=== PATIENT | female | born 1965 | race Caucasian/White ===

== ENCOUNTER → 2016-09-03 | Day surgery (SDC) | payer MEDICARE, MEDICAID ==
[~2016-09-03] VITALS: Ht 172.7 cm; Wt 136.1 kg
[~2016-09-03] MED LIST: ALBUTEROL0.09 MG/A2; ALBUTEROL2.5 MG/0.5 NEB; AUGMENTIN 875 M1 TAB PO; AUGMENTIN PO; AVELOX400 MG IJ; BUSPAR15 MG PO; BUSPAR5 MG; CRANBERRY PO; CYMBALTA20 MG; CYMBALTA60 MG PO; DICLOFENAC SOD75 MG PO; DILT-XR120 MG PO; FISH OIL PO; FLEXERIL5 MG PO; GARLIC1 EACH PO; GAS RELIEF80 MG PO; GEODON20 MG; GEODON80 MG PO; GUAIFENESIN PO; HYDROCHLOROTH12.5 MG; KEFLEX500 MG PO; LIPITOR10 MG; METICORTEN1 MG; MOTRIN800 MG PO; OMEPRAZOLE MAGN20 MG PO; PLAQUENIL200 MG PO; PREDNISONE10 MG PO; PREDNISONE5 MG PO; PROAIR HFA8.5 GM IH; QUINAPRIL20 MG PO; SPIRIVA18 MCG PO; STEROIDS; SYMBICORT1 AE1; SYMBICORT1 AE1 INH; Senokot-S 50 MG1 TAB PO; TECFIDERA240 M2 PO; TRIAMTERENE AND1 TA1 PO; TRIMOX; TYLENOL325 M1 PO; VICODIN 5/500 505 MG PO; VITAMIN D32000 UNIT PO; VITAMIN E400 UNI2 PO; VITAMINS FOR HA1 CAP PO; XALATAN 0.005%2.5 ML; XALATAN 0.005%2.5 ML OU; XANAX0.25 MG; XANAX0.5 MG PO; [UNRECOGNIZED DRUG - OTHER] SC; [UNRECOGNIZED DRUG - REMARK]
--- NOTE | ~2016-09-03 | PROC NOTE ---
[place], [place] PROCEDURE NOTE NAME: MARIANO BRAMBILA UNIT #: [id number] ROOM: DOCTOR: NATALIE GUNTER MD BIRTHDATE: [birth year] DATE: 09/03/16 INDICATION: This 51-year-old patient has presented for colonic screening. ALLERGIES: To no known medication. PAST MEDICAL HISTORY: Systemic lupus erythematosus, MS, COPD, hypertension. FAMILY HISTORY: Noncontributory. SOCIAL HISTORY: Nonsmoker, nonalcohol consumer. PAST SURGICAL HISTORY: Cholecystectomy, hysterectomy. PROCEDURE: Today's procedure as part of investigation is colonoscopy plus snare polypectomy from sigmoid colon. PREMEDICATION: Versed and Diprivan. SCOPE: Olympus forward-viewing colonoscope 10L video. REPORT: After putting the patient in the left lateral position and after application of lubricant to the scope, the scope was introduced thereafter under direct visualization and advanced through the length of the colon without difficulty. The only difficulty present was some semi-liquid obtained, however, we were able to identify polypoid lesion in sigmoid colon was removed by snare polypectomy. Patient extubated, tolerated the procedure well. IMPRESSION: Sigmoid colonic polyp, status post polypectomy with snare. PLAN: High fiber diet, activity ad zay, follow up routinely with you in the office and prn visit with us in GI clinic. NATALIE VALDERRAMA MD CM:PROCNOTE:PROCEDURE NOTE [address] ESTRELLA GUNTER MD
[2016-09-03 07:00] VITALS: BP 144/77
[2016-09-03 07:56] VITALS: BP 141/79
[2016-09-03 08:11] VITALS: BP 141/78
[2016-09-03 08:26] VITALS: BP 145/70
== END | disposition home or self-care (01) ==
LOC: SDC 09-01 14:00
DX: Z12.11 Encounter for screening for malignant neoplasm of colon (principal); D12.5 Benign neoplasm of sigmoid colon; J44.9 Chronic obstructive pulmonary disease, unspecified; G35 Multiple sclerosis; I10 Essential (primary) hypertension; F32.9 Major depressive disorder, single episode, unspecified; F41.9 Anxiety disorder, unspecified; M32.9 Systemic lupus erythematosus, unspecified; J45.909 Unspecified asthma, uncomplicated; K21.9 Gastro-esophageal reflux disease without esophagitis; Z90.49 Acquired absence of other specified parts of digestive tract; Z90.710 Acquired absence of both cervix and uterus; Z98.890 Other specified postprocedural states; Z83.3 Family history of diabetes mellitus

== ENCOUNTER → 2017-09-30 | Outpatient (CLI) | payer MEDICARE, MEDICAID | END | disposition home or self-care (01) | LOC: RAD 09:32 | DX: M17.11 Unilateral primary osteoarthritis, right knee (principal); M71.21 Synovial cyst of popliteal space [Baker], right knee ==

== ENCOUNTER 2017-11-30 11:53 | Emergency (ER) | payer MEDICARE, MEDICAID ==
[~2017-11-30] VITALS: Ht 172.7 cm; Wt 136.1 kg
--- NOTE | ~2017-11-30 | EKG ---
[place], [place] ELECTROCARDIOGRAM REPORT NAME: MARIANO BRAMBILA UNIT #: [id number] ROOM: DOCTOR: EPIPHANY DRAFT REPORT BIRTHDATE: [birth year] [facility] Test Date: 2017-11-30 Test Time: 13:14:09 Pat Name: MARIANO BRAMBILA Department: Room: Gender: F [employer]ner: REMEDIOS : 1965 Requested By: NAKIA HERNANDEZ Order Number: [id number] Reading MD: Sandy Nunez MD Measurements Intervals Rufus Rate: 78 P: 65 MT: 131 QRS: 61 QRSD: 88 T: 64 QT: 374 QTc: 426 Interpretive Statements Sinus rhythm Low voltage, extremity leads Electronically Signed On 11-30-2017 14:12:09 PDT by Sandy Nunez MD CM:EKGRPT:ELECTROCARDIOGRAM REPORT 1314 1412 NAKIA TIWARI DRAFT REPORT NAKIA HERNANDEZ DO
[2017-11-30 13:10] LABS: BASO % 0.3 % (0.0-1.0); EOS # 0.2 10*3/uL (0.0-0.4); EOS % 1.3 % (1.0-4.0); HEMATOCRIT 40.5 % (37.0-47.0); HEMOGLOBIN 13.3 g/dl (12.0-16.0); LYMPH # 1.9 10*3/uL (1.3-4.4); LYMPH % 14.6 % (27.0-41.0); MEAN CELL VOLUME 94.4 fl (81.0-99.0); MEAN CORPUSCULAR HGB CONC 32.8 g/dl (33.0-37.0); MEAN PLATELET VOLUME 9.4 fl (9.6-12.3); MONO # 0.9 10*3/uL (0.1-1.0); MONO % 6.6 % (3.0-9.0); NEUT # 10.1 10*3/uL (2.3-7.9); NEUT % 76.7 % (47.0-73.0); PLATELET COUNT AUTOMATED 241 10*3/uL (130-400); RED BLOOD COUNT 4.29 10*6/uL (4.10-5.10); RED CELL DISTRI WIDTH 13.6 % (0-14.5); WHITE BLOOD COUNT 13.1 10*3/uL (4.8-10.8)
[2017-11-30 13:26] LABS: ALBUMIN 3.2 gm/dl (3.1-4.5); ALKALINE PHOSPHATASE 82 U/L (45-117); BUN 13 mg/dl (7-24); CHLORIDE 103 mmol/L (98-107); CREATININE 0.95 mg/dL (0.55-1.02); POTASSIUM 4.1 mmol/L (3.5-5.1); SGOT/AST 14 IU/L (3-35); SGPT/ALT 37 U/L (12-78); SODIUM 138 mmol/L (136-145); TOTAL PROTEIN 7.5 gm/dL (6.4-8.2)
[2017-11-30 13:27] LABS: TROPONIN I < 0.015 ng/ml (<0.045)
[2017-11-30] MEDS ORDERED: ZITHROMAX250 MG PO (13:39)
[2017-11-30] MEDS ORDERED: DELTASONE20 M1 PO (13:39)
== END 2017-11-30 13:59 | disposition home or self-care (01) ==
LOC: ED 11:53
PROVIDERS: Emergency Medicine
DX: J40 Bronchitis, not specified as acute or chronic (principal); J44.9 Chronic obstructive pulmonary disease, unspecified; I10 Essential (primary) hypertension; Z90.49 Acquired absence of other specified parts of digestive tract; Z90.710 Acquired absence of both cervix and uterus; Z79.899 Other long term (current) drug therapy

== ENCOUNTER → 2018-12-31 | Outpatient (CLI) | payer MEDICARE, MEDICAID ==
[~2018-12-31] MED LIST changes: +DELTASONE20 M1 PO; +MEDROL DOSEPAK4 MG PO; +ZITHROMAX250 MG PO
== END | disposition home or self-care (01) ==
LOC: CT 08:37
DX: J43.9 Emphysema, unspecified (principal); R91.1 Solitary pulmonary nodule; K44.9 Diaphragmatic hernia without obstruction or gangrene; R06.02 Shortness of breath; R09.89 Other specified symptoms and signs involving the circulatory and respiratory systems; R00.0 Tachycardia, unspecified; G35 Multiple sclerosis

== ENCOUNTER → 2019-01-17 | Outpatient (CLI) | payer MEDICARE, MEDICAID | END | disposition home or self-care (01) | LOC: CARD 01-10 09:30 | DX: R01.1 Cardiac murmur, unspecified (principal); R60.9 Edema, unspecified ==

== ENCOUNTER 2019-01-30 13:11 | Emergency (ER) | payer MEDICARE, MEDICAID ==
[~2019-01-30] VITALS: Ht 172.7 cm; Wt 122.5 kg
[~2019-01-30 13:11] MED LIST changes: -MEDROL DOSEPAK4 MG PO
[2019-01-30 13:49] LABS: BASO # 0.1 10*3/uL (0.0-0.1); BASO % 0.5 % (0.0-1.0); EOS # 0.4 10*3/uL (0.0-0.4); EOS % 3.8 % (1.0-4.0); HEMATOCRIT 44.2 % (37.0-47.0); HEMOGLOBIN 14.3 g/dl (12.0-16.0); LYMPH # 1.9 10*3/uL (1.3-4.4); LYMPH % 20.5 % (27.0-41.0); MEAN CELL VOLUME 99.1 fl (81.0-99.0); MEAN CORPUSCULAR HGB 32.1 pg (27.0-31.0); MEAN CORPUSCULAR HGB CONC 32.4 g/dl (33.0-37.0); MEAN PLATELET VOLUME 10.5 fl (9.6-12.3); MONO # 0.7 10*3/uL (0.1-1.0); MONO % 7.2 % (3.0-9.0); NEUT # 6.3 10*3/uL (2.3-7.9); NEUT % 67.7 % (47.0-73.0); PLATELET COUNT AUTOMATED 270 10*3/uL (130-400); RED BLOOD COUNT 4.46 10*6/uL (4.10-5.10); RED CELL DISTRI WIDTH 12.9 % (0-14.5); WHITE BLOOD COUNT 9.3 10*3/uL (4.8-10.8)
[2019-01-30 13:59] LABS: BUN 9 mg/dl (7-24); CHLORIDE 106 mmol/L (98-107); CREATININE 0.81 mg/dL (0.55-1.02); POTASSIUM 3.9 mmol/L (3.5-5.1); SODIUM 141 mmol/L (136-145)
[2019-01-30 14:00] LABS: ACT PARTIAL THROMBO TIME 27.4 SECONDS (20.0-32.1)
[2019-01-30] MEDS ORDERED: MEDROL DOSEPAK4 MG PO ×2 (15:00→15:40)
[2019-01-30] MEDS ORDERED: TYLENOL325 M1 PO ×3 (15:00→15:52)
== END 2019-01-30 15:58 | disposition home or self-care (01) ==
LOC: ED 13:11
PROVIDERS: Emergency Medicine
DX: M54.16 Radiculopathy, lumbar region (principal); J44.9 Chronic obstructive pulmonary disease, unspecified; I10 Essential (primary) hypertension; G35 Multiple sclerosis; K21.9 Gastro-esophageal reflux disease without esophagitis; Z79.2 Long term (current) use of antibiotics; Z79.899 Other long term (current) drug therapy

== ENCOUNTER → 2019-04-28 | Outpatient (CLI) | payer MEDICARE, MEDICAID ==
[~2019-04-28] MED LIST changes: +MEDROL DOSEPAK4 MG PO
[2019-04-28 09:42] LABS: BASO # 0.1 10*3/uL (0.0-0.1); BASO % 0.6 % (0.0-1.0); EOS # 0.2 10*3/uL (0.0-0.4); EOS % 2.6 % (1.0-4.0); HEMATOCRIT 45.2 % (37.0-47.0); HEMOGLOBIN 14.2 g/dl (12.0-16.0); LYMPH # 2.1 10*3/uL (1.3-4.4); LYMPH % 24.1 % (27.0-41.0); MEAN CORPUSCULAR HGB 30.5 pg (27.0-31.0); MEAN CORPUSCULAR HGB CONC 31.4 g/dl (33.0-37.0); MEAN PLATELET VOLUME 9.9 fl (9.6-12.3); MONO # 0.8 10*3/uL (0.1-1.0); MONO % 9.2 % (3.0-9.0); NEUT # 5.6 10*3/uL (2.3-7.9); NEUT % 63.2 % (47.0-73.0); PLATELET COUNT AUTOMATED 292 10*3/uL (130-400); RED BLOOD COUNT 4.66 10*6/uL (4.10-5.10); RED CELL DISTRI WIDTH 13.2 % (0-14.5); WHITE BLOOD COUNT 8.8 10*3/uL (4.8-10.8)
[2019-04-28 10:15] LABS: ALKALINE PHOSPHATASE 84 U/L (45-117); BUN 11 mg/dl (7-24); CHLORIDE 107 mmol/L (98-107); CHOLESTEROL 188 mg/dL (<200); CREATININE 0.71 mg/dL (0.55-1.02); SGOT/AST 13 IU/L (3-35); SGPT/ALT 23 U/L (12-78); SODIUM 141 mmol/L (136-145); TOTAL PROTEIN 7.1 gm/dL (6.4-8.2); TRIGLYCERIDES 257 mg/dl (<150); VLDL CHOLESTEROL 51 mg/dL (6-40)
[2019-04-28 10:23] LABS: HDL CHOLESTEROL 39 mg/dl (40-60); LDL CHOLESTEROL 98 mg/dL (9-159)
[2019-04-28 10:55] LABS: VITAMIN D, 25-HYDROXY 44.1 ng/mL (30-100)
== END | disposition home or self-care (01) ==
LOC: LAB 08:46
PROVIDERS: Nurse Practitioner Primary Care
DX: I10 Essential (primary) hypertension (principal); E55.9 Vitamin D deficiency, unspecified; R53.83 Other fatigue; Z23 Encounter for immunization; Z79.899 Other long term (current) drug therapy

== ENCOUNTER → 2019-04-29 | Outpatient (CLI) | payer MEDICARE, MEDICAID | END | disposition home or self-care (01) | LOC: LAB 10:54 | PROVIDERS: Nurse Practitioner Primary Care | DX: R80.9 Proteinuria, unspecified (principal) ==

== ENCOUNTER → 2019-07-18 | Outpatient (CLI) | payer MEDICARE, MEDICAID ==
[~2019-07-18] MED LIST changes: +BREO ELLIPTA 11 EACH INH; +COPAXONE40 MG/1 ML SQ; +ESZOPICLONE1 MG PO; +SINGULAIR10 M1 PO
== END | disposition home or self-care (01) ==
LOC: CT 13:00
DX: R91.8 Other nonspecific abnormal finding of lung field (principal); I25.10 Atherosclerotic heart disease of native coronary artery without angina pectoris; Z90.49 Acquired absence of other specified parts of digestive tract

== ENCOUNTER → 2019-07-22 | Outpatient (CLI) | payer MEDICARE, MEDICAID | END | disposition home or self-care (01) | LOC: LAB 15:12 | DX: Z01.818 Encounter for other preprocedural examination (principal); Z11.59 Encounter for screening for other viral diseases ==

== ENCOUNTER → 2019-07-26 | Day surgery (SDC) | payer MEDICARE, MEDICAID ==
[~2019-07-26] VITALS: Ht 172.7 cm; Wt 117.9 kg
[2019-07-26 07:47] VITALS: BP 147/74
[2019-07-26 10:00] VITALS: BP 151/97
[2019-07-26 10:15] VITALS: BP 137/81
[2019-07-27 10:08] LABS: ACID FAST SPEC PROCESSING Concentration (.)
== END | disposition home or self-care (01) ==
LOC: SDC 07-25 13:15
PROVIDERS: Internal Medicine Critical Care Medicine
PROC: 0BJ08ZZ Inspection of Tracheobronchial Tree, Via Natural or Artificial Opening Endoscopic (ICD-10-PCS; principal; 2019-07-26)
DX: J43.2 Centrilobular emphysema (principal); G47.33 Obstructive sleep apnea (adult) (pediatric); I10 Essential (primary) hypertension; E11.9 Type 2 diabetes mellitus without complications; K21.9 Gastro-esophageal reflux disease without esophagitis; F41.9 Anxiety disorder, unspecified; F32.9 Major depressive disorder, single episode, unspecified; Z87.891 Personal history of nicotine dependence; Z79.899 Other long term (current) drug therapy; Z83.3 Family history of diabetes mellitus

== ENCOUNTER → 2020-02-21 | Outpatient (CLI) | payer MEDICARE, MEDICAID | END | disposition home or self-care (01) | LOC: COVID19 09:44 | PROVIDERS: ATTEND Nurse Practitioner Primary Care | DX: Z20.828 Contact with and (suspected) exposure to other viral communicable diseases (principal); J44.1 Chronic obstructive pulmonary disease with (acute) exacerbation ==

== ENCOUNTER → 2020-04-30 | Outpatient (CLI) | payer MEDICARE, MEDICAID ==
[2020-04-30 09:42] LABS: BASO # 0.1 10*3/uL (0.0-0.1); BASO % 0.5 % (0.0-1.0); EOS # 0.4 10*3/uL (0.0-0.4); HEMATOCRIT 45.3 % (37.0-47.0); LYMPH # 2.4 10*3/uL (1.3-4.4); LYMPH % 20.4 % (27.0-41.0); MEAN CORPUSCULAR HGB 29.7 pg (27.0-31.0); MEAN CORPUSCULAR HGB CONC 31.6 g/dl (33.0-37.0); MEAN PLATELET VOLUME 9.7 fl (9.6-12.3); MONO % 8.7 % (3.0-9.0); NEUT % 67.1 % (47.0-73.0); PLATELET COUNT AUTOMATED 301 10*3/uL (130-400); RED BLOOD COUNT 4.82 10*6/uL (4.10-5.10); RED CELL DISTRI WIDTH 13.5 % (0-14.5); WHITE BLOOD COUNT 11.9 10*3/uL (4.8-10.8)
== END | disposition home or self-care (01) ==
LOC: LAB 08:56
PROVIDERS: ATTEND Internal Medicine Critical Care Medicine
DX: Z79.899 Other long term (current) drug therapy (principal)

== ENCOUNTER → 2021-11-07 | Outpatient (CLI) | payer MEDICARE, MEDICAID | END | disposition home or self-care (01) | LOC: LAB 14:28 | PROVIDERS: ATTEND Internal Medicine Critical Care Medicine | DX: J96.11 Chronic respiratory failure with hypoxia (principal); J45.50 Severe persistent asthma, uncomplicated; Z87.891 Personal history of nicotine dependence; Z79.52 Long term (current) use of systemic steroids; J43.2 Centrilobular emphysema; G47.33 Obstructive sleep apnea (adult) (pediatric); R91.8 Other nonspecific abnormal finding of lung field; R05.9 Cough, unspecified ==

== ENCOUNTER → 2022-05-19 | Outpatient (CLI) | payer MEDICARE, MEDICAID ==
[~2022-05-19] MED LIST changes: +AMOX-CLAV 875-1 EACH PO; +CLARITIN10 MG PO; +COREG6.25 MG PO; +DOXYCYCLINE MO100 MG PO; +FLONASE ALLERG9.9 ML NAS; +FOSAMAX70 M1 PO; +LASIX20 MG PO; +LINZESS145 MC1 PO; +LIPITOR10 MG PO; -VITAMIN D32000 UNIT PO; +VITAMIN D325 MCG PO
== END | disposition home or self-care (01) ==
LOC: CT 11:00
PROVIDERS: ATTEND Internal Medicine Critical Care Medicine
DX: J98.09 Other diseases of bronchus, not elsewhere classified (principal); I25.10 Atherosclerotic heart disease of native coronary artery without angina pectoris; J43.8 Other emphysema; R91.1 Solitary pulmonary nodule

== ENCOUNTER → 2022-06-04 | Day surgery (SDC) | payer MEDICARE, MEDICAID ==
[~2022-06-04] VITALS: Ht 172.7 cm; Wt 136.1 kg
[2022-06-04 08:15] VITALS: BP 117/41
[2022-06-04 09:52] VITALS: BP 103/41
[2022-06-04 10:00] VITALS: BP 102/42
[2022-06-04 10:21] VITALS: BP 113/50
[2022-06-04 14:42] LABS: BF LYMPHOCYTES 2 %; BF MACROPHAGES 3 %; BF NEUTROPHILS 95 %
[2022-06-05 09:07] LABS: ACID FAST SPEC PROCESSING Concentration (.)
[2022-06-05 09:07] LABS: ACID FAST SPEC PROCESSING Concentration (.)
== END | disposition home or self-care (01) ==
LOC: SDC 05-29 15:30
PROVIDERS: ATTEND Internal Medicine Critical Care Medicine
DX: R91.8 Other nonspecific abnormal finding of lung field (principal); F41.9 Anxiety disorder, unspecified; F32.A Depression, unspecified; J44.9 Chronic obstructive pulmonary disease, unspecified; K21.9 Gastro-esophageal reflux disease without esophagitis; E78.00 Pure hypercholesterolemia, unspecified; I11.0 Hypertensive heart disease with heart failure; G47.33 Obstructive sleep apnea (adult) (pediatric); I50.9 Heart failure, unspecified; E11.9 Type 2 diabetes mellitus without complications; Z87.891 Personal history of nicotine dependence; Z98.890 Other specified postprocedural states

== ENCOUNTER → 2022-06-12 | Outpatient (CLI) | payer MEDICARE, MEDICAID ==
[2022-06-12 12:59] LABS: BASO % 0.2 % (0.0-1.0); LYMPH # 2.1 10*3/uL (1.3-4.4); MEAN CELL VOLUME 94.6 fl (81.0-99.0); MEAN CORPUSCULAR HGB 29.3 pg (27.0-31.0); MONO # 1.2 10*3/uL (0.1-1.0); MONO % 8.9 % (3.0-9.0); NEUT # 9.7 10*3/uL (2.3-7.9); NEUT % 74.6 % (47.0-73.0); PLATELET COUNT AUTOMATED 360 10*3/uL (130-400); RED BLOOD COUNT 4.23 10*6/uL (4.10-5.10)
[2022-06-12 13:24] LABS: ALKALINE PHOSPHATASE 75 U/L (46-116); BUN 9 mg/dl (9-23); CHLORIDE 104 mmol/L (98-107); CHOLESTEROL 128 mg/dL (<200); LDL CHOLESTEROL 53 mg/dL (9-159); POTASSIUM 4.4 mmol/L (3.4-5.1); SGPT/ALT 8 U/L (10-49); TOTAL PROTEIN 7.5 gm/dL (6.0-8.0); TRIGLYCERIDES 121 mg/dl (<150)
== END | disposition home or self-care (01) ==
LOC: LAB 12:38
PROVIDERS: ATTEND Family Medicine
DX: E11.9 Type 2 diabetes mellitus without complications (principal); R60.0 Localized edema; R09.89 Other specified symptoms and signs involving the circulatory and respiratory systems; J44.9 Chronic obstructive pulmonary disease, unspecified; G35 Multiple sclerosis; I10 Essential (primary) hypertension

== ENCOUNTER → 2023-04-09 | Outpatient (CLI) | payer OTHER, MEDICAID | END | disposition home or self-care (01) | LOC: CT 01:33 | PROVIDERS: ATTEND Internal Medicine Critical Care Medicine | DX: R91.8 Other nonspecific abnormal finding of lung field (principal); J43.9 Emphysema, unspecified; I25.10 Atherosclerotic heart disease of native coronary artery without angina pectoris ==

== ENCOUNTER → 2023-05-05 | Outpatient (CLI) | payer OTHER, MEDICAID ==
[2023-05-05 09:52] LABS: BASO # 0.1 10*3/uL (0.0-0.1); BASO % 0.3 % (0.0-1.0); EOS % 0.1 % (1.0-4.0); LYMPH # 4.1 10*3/uL (1.3-4.4); MEAN CELL VOLUME 93.1 fl (81.0-99.0); MEAN CORPUSCULAR HGB 27.5 pg (27.0-31.0); MEAN CORPUSCULAR HGB CONC 29.6 g/dl (33.0-37.0); MEAN PLATELET VOLUME 9.2 fl (9.6-12.3); MONO # 1.4 10*3/uL (0.1-1.0); MONO % 7.5 % (3.0-9.0); NEUT # 12.9 10*3/uL (2.3-7.9); NEUT % 69.5 % (47.0-73.0); PLATELET COUNT AUTOMATED 399 10*3/uL (130-400); RED BLOOD COUNT 4.94 10*6/uL (4.10-5.10); WHITE BLOOD COUNT 18.6 10*3/uL (4.8-10.8)
[2023-05-05 10:18] LABS: ALKALINE PHOSPHATASE 84 U/L (46-116); BUN 17 mg/dl (9-23); CHLORIDE 103 mmol/L (98-107); CHOLESTEROL 139 mg/dL (<200); LDL CHOLESTEROL 43 mg/dL (9-159); POTASSIUM 4.1 mmol/L (3.4-5.1); SGPT/ALT 17 U/L (5-49); TOTAL PROTEIN 7.8 gm/dL (6.0-8.0); TRIGLYCERIDES 222 mg/dl (<150)
[2023-05-05 18:22] LABS: URINE CREATININE RANDOM 138.8 mg/dL
== END | disposition home or self-care (01) ==
LOC: LAB 09:09
PROVIDERS: ATTEND Nurse Practitioner Family
DX: M79.601 Pain in right arm (principal); J44.1 Chronic obstructive pulmonary disease with (acute) exacerbation; R73.03 Prediabetes; E78.5 Hyperlipidemia, unspecified; E66.01 Morbid (severe) obesity due to excess calories; G35 Multiple sclerosis

== ENCOUNTER 2023-06-15 12:30 | Inpatient (IN) | payer OTHER, MEDICAID ==
[~2023-06-15] VITALS: Ht 172.7 cm; Wt 148.8 kg
[2023-06-15] MEDS ORDERED: methylPREDNISolone sod succ 125 MG VIAL IV ONE (12:40)
[2023-06-15] MEDS ORDERED: Albuterol Sulf/Ipratropium 3 ML VIAL NEB ONE (12:40)
[2023-06-15 12:44] VITALS: BP 154/69
[2023-06-15 13:00] LABS: BASO % 0.3 % (0.0-1.0); HEMATOCRIT 38.5 % (37.0-47.0); LYMPH # 2.8 10*3/uL (1.3-4.4); LYMPH % 18.1 % (27.0-41.0); MEAN CELL VOLUME 89.5 fl (81.0-99.0); MEAN CORPUSCULAR HGB 27.2 pg (27.0-31.0); MEAN CORPUSCULAR HGB CONC 30.4 g/dl (33.0-37.0); MEAN PLATELET VOLUME 9.5 fl (9.6-12.3); MONO # 1.4 10*3/uL (0.1-1.0); MONO % 9.5 % (3.0-9.0); NEUT # 10.9 10*3/uL (2.3-7.9); NEUT % 71.4 % (47.0-73.0); PLATELET COUNT AUTOMATED 391 10*3/uL (130-400); RED CELL DISTRI WIDTH 16.2 % (0-14.5); WHITE BLOOD COUNT 15.2 10*3/uL (4.8-10.8)
[2023-06-15] MEDS ORDERED: TERIFLUNOMIDE PO (13:07)
[2023-06-15] MEDS ORDERED: INCRUSE ELLI62.5 MCG INH (13:10)
[2023-06-15 13:27] LABS: ARTERIAL BLOOD GAS PH 7.34 (7.35-7.45)
[2023-06-15 13:29] LABS: ABG BASE EXCESS 4.5 mmol/L (-2.0-2.0)
[2023-06-15 13:54] LABS: ALKALINE PHOSPHATASE 76 U/L (46-116); BUN 7 mg/dl (9-23); CHLORIDE 98 mmol/L (98-107); CPK 20 U/L (34-171); POTASSIUM 3.9 mmol/L (3.4-5.1); SGPT/ALT 13 U/L (5-49); TOTAL PROTEIN 7.8 gm/dL (6.0-8.0)
[2023-06-15] MEDS ORDERED: Ceftriaxone Sodium 1 GM/10 ML SYR IV ONE (14:25)
[2023-06-15] MEDS ORDERED: AZITHROMYCIN 250 ML IV ONE (14:25)
[2023-06-15] MEDS ORDERED: ACETAMINOPHEN 325 MG TAB PO PRN (15:30)
[2023-06-15] MEDS ORDERED: BISACODYL 5 MG TAB PO PRN (15:30)
[2023-06-15] MEDS ORDERED: Acetaminophen/Hydrocodone 5 MG/325 MG TABLET PO PRN (15:30)
[2023-06-15] MEDS ORDERED: Magnesium Hydroxide 30 ML UDC PO PRN (15:30)
[2023-06-15] MEDS ORDERED: Ondansetron Hydrochloride 4 MG/2 ML VIAL IV PRN (15:30)
[2023-06-15] MEDS ORDERED: Albuterol Sulf/Ipratropium 3 ML VIAL NEB SCH (15:35)
[2023-06-15] MEDS ORDERED: SODIUM CHLORIDE 0.9% 1,000 ML IV SCH (16:00)
[2023-06-15] MEDS ORDERED: Ceftriaxone Sodium 1 GM in SYRINGE INFUSION 10 ML IV ONE (16:30)
[2023-06-15 16:55] VITALS: BP 143/67
[2023-06-15 19:31] VITALS: BP 144/68
[2023-06-15 21:35] VITALS: BP 151/75
[2023-06-15] MEDS ORDERED: methylPREDNISolone sod succ 40 MG VIAL IV SCH (22:00)
[2023-06-16] VITALS: BP 134/72
[2023-06-16] MEDS ORDERED: Albuterol Sulf/Ipratropium 3 ML VIAL NEB SCH (01:00)
[2023-06-16] MEDS ORDERED: BUDESONIDE 0.5 MG AMP NEB SCH (01:00)
[2023-06-16] MEDS ORDERED: IPRATROPIUM BROMIDE 0.5 MG/2.5 ML AMP NEB SCH (01:00)
[2023-06-16 07:31] LABS: BASO % 0.2 % (0.0-1.0); HEMATOCRIT 38.1 % (37.0-47.0); LYMPH # 1.4 10*3/uL (1.3-4.4); LYMPH % 8.8 % (27.0-41.0); MEAN CELL VOLUME 90.9 fl (81.0-99.0); MEAN CORPUSCULAR HGB CONC 29.7 g/dl (33.0-37.0); MEAN PLATELET VOLUME 9.3 fl (9.6-12.3); MONO # 0.4 10*3/uL (0.1-1.0); MONO % 2.4 % (3.0-9.0); NEUT # 14.3 10*3/uL (2.3-7.9); NEUT % 87.8 % (47.0-73.0); PLATELET COUNT AUTOMATED 400 10*3/uL (130-400); RED BLOOD COUNT 4.19 10*6/uL (4.10-5.10); RED CELL DISTRI WIDTH 15.6 % (0-14.5); WHITE BLOOD COUNT 16.3 10*3/uL (4.8-10.8)
[2023-06-16] MEDS ORDERED: GUAIFENESIN 600 MG TAB ER PO SCH (07:55)
[2023-06-16 08:00] VITALS: BP 116/61
[2023-06-16 08:07] LABS: VITAMIN D, 25-HYDROXY 50.5 ng/mL (30-100)
[2023-06-16 08:09] LABS: ALKALINE PHOSPHATASE 76 U/L (46-116); BUN 12 mg/dl (9-23); CHLORIDE 102 mmol/L (98-107); CHOLESTEROL 117 mg/dL (<200); LDL CHOLESTEROL 64 mg/dL (9-159); SGPT/ALT 12 U/L (5-49); TOTAL PROTEIN 7.4 gm/dL (6.0-8.0); TRIGLYCERIDES 80 mg/dl (<150)
[2023-06-16] MEDS ORDERED: BREO ELLIPTA INH SCH (10:00)
[2023-06-16] MEDS ORDERED: VITAMIN E 400 IU CAP PO SCH (10:00)
[2023-06-16] MEDS ORDERED: Vitamin D 1,000 IU TAB (25 MCG) PO SCH (10:00)
[2023-06-16] MEDS ORDERED: LINACLOTIDE 145 MCG CAP PO SCH (10:00)
[2023-06-16] MEDS ORDERED: LORATADINE 10 MG TAB PO SCH (10:00)
[2023-06-16] MEDS ORDERED: DILTIAZEM CD 120 MG CAP PO SCH (10:00)
[2023-06-16] MEDS ORDERED: Montelukast Sodium 10 MG TAB PO SCH (10:00)
[2023-06-16] MEDS ORDERED: Duloxetine Hydrochloride 60 MG CAP PO SCH (10:00)
[2023-06-16] MEDS ORDERED: busPIRone Hydrochloride 15 MG TAB PO SCH (10:00)
[2023-06-16] MEDS ORDERED: CARVEDILOL 6.25 MG TAB PO SCH (10:00)
[2023-06-16] MEDS ORDERED: FUROSEMIDE 20 MG TAB PO SCH (10:00)
[2023-06-16] MEDS ORDERED: Enoxaparin Sodium 40 MG/0.4 ML SYR SC SCH (10:00)
[2023-06-16] MEDS ORDERED: UMECLIDINIUM BROMIDE 62.5 MCG INH SCH (10:00)
[2023-06-16 12:00] VITALS: BP 114/48
[2023-06-16] MEDS ORDERED: DEXTROSE 10 % IN WATER 250 ML IV PRN (12:05)
[2023-06-16] MEDS ORDERED: Cefepime Hydrochloride 2 GM,IV 1 EA in SODIUM CHLORIDE 0.9% 50 ML IV SCH (14:00)
[2023-06-16] MEDS ORDERED: AZITHROMYCIN 250 ML IV SCH (15:00)
[2023-06-16 16:00] VITALS: BP 122/69
[2023-06-16] MEDS ORDERED: Ceftriaxone Sodium 2 GM in SYRINGE INFUSION 20 ML IV SCH (16:00)
[2023-06-16] MEDS ORDERED: INSULIN LISPRO 1 UNIT/0.01 ML SQ SCH (16:30)
[2023-06-16 20:00] VITALS: BP 138/51
[2023-06-16] MEDS ORDERED: NYSTATIN 15 GM BOT T SCH (22:00)
[2023-06-16] MEDS ORDERED: AQUAPHOR OINTMENT Base 50 GM TUBE T SCH (22:00)
[2023-06-16] MEDS ORDERED: LATANOPROST 0.005% 2.5 ML BOTTLE OPH SCH (22:00)
[2023-06-16] MEDS ORDERED: ATORVASTATIN CALCIUM 10 MG TAB PO SCH (22:00)
[2023-06-17] VITALS (9 sets, daily range): BP systolic 123–184; BP diastolic 54–111
[2023-06-17 06:22] LABS: BUN 18 mg/dl (9-23); CHLORIDE 102 mmol/L (98-107)
[2023-06-17 06:45] LABS: BASO % 0.2 % (0.0-1.0); HEMATOCRIT 39.9 % (37.0-47.0); LYMPH # 1.4 10*3/uL (1.3-4.4); LYMPH % 6.5 % (27.0-41.0); MEAN CELL VOLUME 91.3 fl (81.0-99.0); MEAN CORPUSCULAR HGB 27.7 pg (27.0-31.0); MEAN CORPUSCULAR HGB CONC 30.3 g/dl (33.0-37.0); MEAN PLATELET VOLUME 9.7 fl (9.6-12.3); MONO # 0.6 10*3/uL (0.1-1.0); MONO % 2.6 % (3.0-9.0); NEUT # 19.8 10*3/uL (2.3-7.9); NEUT % 89.8 % (47.0-73.0); PLATELET COUNT AUTOMATED 428 10*3/uL (130-400); RED BLOOD COUNT 4.37 10*6/uL (4.10-5.10); RED CELL DISTRI WIDTH 15.8 % (0-14.5); WHITE BLOOD COUNT 22.1 10*3/uL (4.8-10.8)
[2023-06-17] MEDS ORDERED: SODIUM CHLORIDE 0.9% 1,000 ML IV ONE (10:43)
[2023-06-17] MEDS ORDERED: Albuterol Sulfate 1.25 MG/3 ML VIAL NEB ONE (11:55)
[2023-06-17] MEDS ORDERED: Lidocaine Hydrochloride 4% 5 ML AMP NEB ONE (11:55)
[2023-06-17] MEDS ORDERED: Lidocaine Hydrochloride 4% 5 ML AMP ONE (11:57)
[2023-06-17] MEDS ORDERED: Albuterol Sulfate 2.5 MG/0.5 ML VIAL NEB ONE (11:58)
[2023-06-17] MEDS ORDERED: Albuterol Sulf/Ipratropium 3 ML VIAL NEB ONE ×2 (12:40→13:01)
[2023-06-17 14:08] LABS: MYCOPLASMA PNEUMONIAE IGG 161 U/mL (0-99); MYCOPLASMA PNEUMONIAE IGM <770 U/mL (0-769)
[2023-06-17] MEDS ORDERED: hydrOXYzine pamoate 25 MG CAP PO ONE (15:20)
[2023-06-17] MEDS ORDERED: PROPOFOL 200 MG/20 ML VIAL IV ONE (20:36)
[2023-06-17] MEDS ORDERED: Lidocaine Hydrochloride 2% 10 ML AMP IM ONE (20:36)
[2023-06-18] VITALS: BP 151/66
[2023-06-18 06:16] LABS: BASO % 0.2 % (0.0-1.0); HEMATOCRIT 37.9 % (37.0-47.0); LYMPH # 1.4 10*3/uL (1.3-4.4); LYMPH % 7.7 % (27.0-41.0); MEAN CELL VOLUME 91.5 fl (81.0-99.0); MEAN CORPUSCULAR HGB 27.3 pg (27.0-31.0); MEAN CORPUSCULAR HGB CONC 29.8 g/dl (33.0-37.0); MEAN PLATELET VOLUME 9.4 fl (9.6-12.3); MONO # 0.6 10*3/uL (0.1-1.0); MONO % 3.4 % (3.0-9.0); NEUT # 16.1 10*3/uL (2.3-7.9); NEUT % 87.9 % (47.0-73.0); PLATELET COUNT AUTOMATED 407 10*3/uL (130-400); RED BLOOD COUNT 4.14 10*6/uL (4.10-5.10); WHITE BLOOD COUNT 18.3 10*3/uL (4.8-10.8)
[2023-06-18 06:43] LABS: BUN 14 mg/dl (9-23); CHLORIDE 102 mmol/L (98-107); POTASSIUM 5.3 mmol/L (3.4-5.1)
[2023-06-18 08:45] VITALS: BP 144/82
[2023-06-18 12:00] VITALS: BP 152/74
[2023-06-18 15:07] LABS: ACID FAST SPEC PROCESSING Concentration (.)
[2023-06-18 16:00] VITALS: BP 130/55
[2023-06-18 20:00] VITALS: BP 159/62
[2023-06-18] MEDS ORDERED: hydrOXYzine pamoate 25 MG CAP PO ONE (21:30)
[2023-06-19] VITALS: BP 143/90
[2023-06-19 06:12] LABS: BUN 16 mg/dl (9-23); CHLORIDE 101 mmol/L (98-107)
[2023-06-19 06:40] LABS: BASO % 0.2 % (0.0-1.0); HEMATOCRIT 38.9 % (37.0-47.0); LYMPH # 1.4 10*3/uL (1.3-4.4); LYMPH % 8.1 % (27.0-41.0); MEAN CELL VOLUME 91.3 fl (81.0-99.0); MEAN CORPUSCULAR HGB CONC 29.6 g/dl (33.0-37.0); MEAN PLATELET VOLUME 9.5 fl (9.6-12.3); MONO # 0.6 10*3/uL (0.1-1.0); MONO % 3.8 % (3.0-9.0); NEUT # 14.7 10*3/uL (2.3-7.9); NEUT % 87.3 % (47.0-73.0); PLATELET COUNT AUTOMATED 400 10*3/uL (130-400); RED BLOOD COUNT 4.26 10*6/uL (4.10-5.10); RED CELL DISTRI WIDTH 15.9 % (0-14.5); WHITE BLOOD COUNT 16.8 10*3/uL (4.8-10.8)
[2023-06-19 08:00] VITALS: BP 147/56
[2023-06-19] MEDS ORDERED: DOXYCYCLINE HY100 M3 PO (11:39)
[2023-06-19] MEDS ORDERED: AQUAPHOR WITH N50 GM T (11:39)
[2023-06-19] MEDS ORDERED: TERIFLUNOMIDE PO (11:39)
[2023-06-19] MEDS ORDERED: PREDNISONE10 MG PO (11:39)
[2023-06-19] MEDS ORDERED: MUCUS RELIEF600 MG PO (11:39)
[2023-06-19] MEDS ORDERED: OXYGEN NAS (11:40)
== END 2023-06-19 14:07 | disposition home or self-care (01) | DRG 871 ==
LOC: ED 12:30 → 4E 14:37 → EDHOLD 14:37 → 4E 21:09
PROVIDERS: Family Medicine; Internal Medicine Critical Care Medicine; Physician Assistant Medical; ADMIT Internal Medicine; ATTEND Internal Medicine
PROC: 0BC18ZZ Extirpation of Matter from Trachea, Via Natural or Artificial Opening Endoscopic (ICD-10-PCS; principal; 2023-06-17)
PROC: 0BC98ZZ Extirpation of Matter from Lingula Bronchus, Via Natural or Artificial Opening Endoscopic (ICD-10-PCS; 2023-06-17)
PROC: 0BC48ZZ Extirpation of Matter from Right Upper Lobe Bronchus, Via Natural or Artificial Opening Endoscopic (ICD-10-PCS; 2023-06-17)
PROC: 0BC88ZZ Extirpation of Matter from Left Upper Lobe Bronchus, Via Natural or Artificial Opening Endoscopic (ICD-10-PCS; 2023-06-17)
PROC: 0BC58ZZ Extirpation of Matter from Right Middle Lobe Bronchus, Via Natural or Artificial Opening Endoscopic (ICD-10-PCS; 2023-06-17)
PROC: 0BC38ZZ Extirpation of Matter from Right Main Bronchus, Via Natural or Artificial Opening Endoscopic (ICD-10-PCS; 2023-06-17)
PROC: 0BC78ZZ Extirpation of Matter from Left Main Bronchus, Via Natural or Artificial Opening Endoscopic (ICD-10-PCS; 2023-06-17)
PROC: 0BC68ZZ Extirpation of Matter from Right Lower Lobe Bronchus, Via Natural or Artificial Opening Endoscopic (ICD-10-PCS; 2023-06-17)
PROC: 0BCB8ZZ Extirpation of Matter from Left Lower Lobe Bronchus, Via Natural or Artificial Opening Endoscopic (ICD-10-PCS; 2023-06-17)
DX: A41.9 Sepsis, unspecified organism (principal); E43 Unspecified severe protein-calorie malnutrition; J18.9 Pneumonia, unspecified organism; J96.21 Acute and chronic respiratory failure with hypoxia; J96.22 Acute and chronic respiratory failure with hypercapnia; J44.1 Chronic obstructive pulmonary disease with (acute) exacerbation; E87.1 Hypo-osmolality and hyponatremia; T17.590A Other foreign object in bronchus causing asphyxiation, initial encounter; Z68.42 Body mass index [BMI] 45.0-49.9, adult; J44.0 Chronic obstructive pulmonary disease with (acute) lower respiratory infection; Z20.822 Contact with and (suspected) exposure to COVID-19; E66.01 Morbid (severe) obesity due to excess calories; I10 Essential (primary) hypertension; F41.9 Anxiety disorder, unspecified; F32.A Depression, unspecified; R65.20 Severe sepsis without septic shock; R73.9 Hyperglycemia, unspecified; G35 Multiple sclerosis; M32.9 Systemic lupus erythematosus, unspecified; Z99.81 Dependence on supplemental oxygen; F41.1 Generalized anxiety disorder; G47.33 Obstructive sleep apnea (adult) (pediatric); S51.802A Unspecified open wound of left forearm, initial encounter; S81.802A Unspecified open wound, left lower leg, initial encounter; W44.F9XA Other object of natural or organic material, entering into or through a natural orifice, initial encounter; X58.XXXA Exposure to other specified factors, initial encounter; Y93.89 Activity, other specified; Z90.710 Acquired absence of both cervix and uterus; Z90.49 Acquired absence of other specified parts of digestive tract; Z82.49 Family history of ischemic heart disease and other diseases of the circulatory system; Z83.6 Family history of other diseases of the respiratory system; Y92.89 Other specified places as the place of occurrence of the external cause; Y99.8 Other external cause status

== ENCOUNTER → 2023-06-25 | Outpatient (CLI) | payer OTHER, MEDICAID ==
[~2023-06-25] MED LIST changes: +AQUAPHOR WITH N50 GM T; +DOXYCYCLINE HY100 M3 PO; +INCRUSE ELLI62.5 MCG INH; +MUCUS RELIEF600 MG PO; +OXYGEN NAS; +TERIFLUNOMIDE PO
[2023-06-25 10:34] LABS: HEMATOCRIT 46.2 % (37.0-47.0); MEAN CELL VOLUME 91.1 fl (81.0-99.0); MEAN CORPUSCULAR HGB CONC 30.7 g/dl (33.0-37.0); MEAN PLATELET VOLUME 9.6 fl (9.6-12.3); PLATELET COUNT AUTOMATED 410 10*3/uL (130-400); RED BLOOD COUNT 5.07 10*6/uL (4.10-5.10); RED CELL DISTRI WIDTH 16.9 % (0-14.5); WHITE BLOOD COUNT 19.5 10*3/uL (4.8-10.8)
[2023-06-25 10:35] LABS: MANUAL DIFF REFLEX YES
[2023-06-25 10:57] LABS: ALKALINE PHOSPHATASE 77 U/L (46-116); BUN 13 mg/dl (9-23); CHLORIDE 99 mmol/L (98-107); POTASSIUM 4.3 mmol/L (3.4-5.1); SGPT/ALT 20 U/L (5-49)
[2023-06-25 11:04] LABS: PLATELET SUFFICIENCY HIGH (NORMAL); POLYCHROMASIA SLIGHT; TARGET CELLS FEW; TOTAL CELLS COUNTED 100 #CELLS
[2023-06-25 11:05] LABS: STOMATOCYTE FEW
== END | disposition home or self-care (01) ==
LOC: LAB 10:11
PROVIDERS: ATTEND Internal Medicine
DX: J44.1 Chronic obstructive pulmonary disease with (acute) exacerbation (principal); R73.9 Hyperglycemia, unspecified; J18.9 Pneumonia, unspecified organism

== ENCOUNTER → 2023-06-26 | Outpatient (CLI) | payer OTHER, MEDICAID | END | disposition home or self-care (01) | LOC: WOUNDCARE 02:09 | PROVIDERS: ATTEND Nurse Practitioner Family | DX: T81.89XA Other complications of procedures, not elsewhere classified, initial encounter (principal); L98.491 Non-pressure chronic ulcer of skin of other sites limited to breakdown of skin; I10 Essential (primary) hypertension; J44.1 Chronic obstructive pulmonary disease with (acute) exacerbation; J96.10 Chronic respiratory failure, unspecified whether with hypoxia or hypercapnia; L57.0 Actinic keratosis; L53.9 Erythematous condition, unspecified; G35 Multiple sclerosis; E66.01 Morbid (severe) obesity due to excess calories; F41.9 Anxiety disorder, unspecified; F32.A Depression, unspecified; Z68.43 Body mass index [BMI] 50.0-59.9, adult; Z87.891 Personal history of nicotine dependence; Z90.49 Acquired absence of other specified parts of digestive tract; Z90.710 Acquired absence of both cervix and uterus; Z79.899 Other long term (current) drug therapy; Y83.8 Other surgical procedures as the cause of abnormal reaction of the patient, or of later complication, without mention of misadventure at the time of the procedure; Y92.89 Other specified places as the place of occurrence of the external cause ==

== ENCOUNTER 2023-07-28 11:13 | Inpatient (IN) | payer OTHER, MEDICAID ==
[~2023-07-28] VITALS: Ht 162.6 cm; Wt 150.3 kg
[2023-07-28 08:00] VITALS: BP 125/83
[2023-07-28 11:24] VITALS: BP 141/72
[2023-07-28 12:34] LABS: BASO % 0.2 % (0.0-1.0); HEMATOCRIT 37.9 % (37.0-47.0); LYMPH # 1.7 10*3/uL (1.3-4.4); LYMPH % 16.7 % (27.0-41.0); MEAN CELL VOLUME 95.2 fl (81.0-99.0); MEAN CORPUSCULAR HGB 28.1 pg (27.0-31.0); MEAN CORPUSCULAR HGB CONC 29.6 g/dl (33.0-37.0); MEAN PLATELET VOLUME 9.7 fl (9.6-12.3); MONO # 0.6 10*3/uL (0.1-1.0); MONO % 5.4 % (3.0-9.0); NEUT # 7.9 10*3/uL (2.3-7.9); NEUT % 77.3 % (47.0-73.0); PLATELET COUNT AUTOMATED 278 10*3/uL (130-400); RED BLOOD COUNT 3.98 10*6/uL (4.10-5.10); RED CELL DISTRI WIDTH 15.2 % (0-14.5); WHITE BLOOD COUNT 10.2 10*3/uL (4.8-10.8)
[2023-07-28 12:56] LABS: ALKALINE PHOSPHATASE 74 U/L (46-116); BUN 10 mg/dl (9-23); CHLORIDE 102 mmol/L (98-107); LIPASE 33 U/L (12-53); POTASSIUM 4.1 mmol/L (3.4-5.1); SGPT/ALT 16 U/L (5-49); TOTAL PROTEIN 6.8 gm/dL (6.0-8.0)
[2023-07-28] MEDS ORDERED: AZITHROMYCIN 250 ML IV ONE (13:15)
[2023-07-28] MEDS ORDERED: Ceftriaxone Sodium 1 GM/10 ML SYR IV ONE (13:15)
[2023-07-28 13:27] VITALS: BP 139/63
[2023-07-28] MEDS ORDERED: methylPREDNISolone sod succ 125 MG VIAL IV ONE (14:35)
[2023-07-28] MEDS ORDERED: FUROSEMIDE 40 MG/4 ML VIAL IV ONE (14:35)
[2023-07-28] MEDS ORDERED: Albuterol Sulf/Ipratropium 3 ML VIAL NEB ONE (14:35)
[2023-07-28] MEDS ORDERED: BISACODYL 5 MG TAB PO PRN (15:25)
[2023-07-28] MEDS ORDERED: Ondansetron Hydrochloride 4 MG/2 ML VIAL IV PRN (15:25)
[2023-07-28] MEDS ORDERED: ACETAMINOPHEN 325 MG TAB PO PRN (15:25)
[2023-07-28] MEDS ORDERED: TEMAZEPAM 15 MG CAP PO PRN (15:25)
[2023-07-28] MEDS ORDERED: Acetaminophen/Hydrocodone 5 MG/325 MG TABLET PO PRN (15:25)
[2023-07-28] MEDS ORDERED: Magnesium Hydroxide 30 ML UDC PO PRN (15:25)
[2023-07-28] MEDS ORDERED: Albuterol Sulf/Ipratropium 3 ML VIAL NEB SCH (15:50)
[2023-07-28] MEDS ORDERED: MAGNESIUM SULFATE 50 ML IV ONE (15:55)
[2023-07-28 15:56] VITALS: BP 132/60
[2023-07-28 16:46] LABS: ARTERIAL BLOOD GAS PH 7.35 (7.35-7.45)
[2023-07-28] MEDS ORDERED: SODIUM CHLORIDE 0.9% 1,000 ML IV SCH (17:00)
[2023-07-28] MEDS ORDERED: DEXTROSE 10 % IN WATER 250 ML IV PRN (17:40)
[2023-07-28 18:08] LABS: BILIRUBIN Negative (Negative); BLOOD Negative (Negative); CLARITY Clear (Clear); COLOR Yellow (Yellow); GLUCOSE Negative (Negative); KETONE Negative (Negative); LEUKO ESTERASE Negative (Negative); NITRITE Negative (Negative); PH 5.5 (4.5-8.0); UROBILINOGEN 0.2 E.U./dl (0.0-1.0)
[2023-07-28 18:24] LABS: BACTERIA 2+; YEAST 1+
[2023-07-28 19:45] VITALS: BP 138/68
[2023-07-28] MEDS ORDERED: methylPREDNISolone sod succ 40 MG VIAL IV SCH (22:00)
[2023-07-28] MEDS ORDERED: INSULIN LISPRO 1 UNIT/0.01 ML SQ SCH (22:00)
[2023-07-28] MEDS ORDERED: GUAIFENESIN 600 MG TAB ER PO SCH (22:00)
[2023-07-29] VITALS (7 sets, daily range): BP systolic 115–160; BP diastolic 68–98
[2023-07-29] MEDS ORDERED: Cefepime Hydrochloride 2 GM,IV 1 EA in SODIUM CHLORIDE 0.9% 50 ML IV SCH
[2023-07-29 06:33] LABS: BASO % 0.2 % (0.0-1.0); HEMATOCRIT 37.3 % (37.0-47.0); LYMPH # 1.5 10*3/uL (1.3-4.4); LYMPH % 13.8 % (27.0-41.0); MEAN CORPUSCULAR HGB 28.2 pg (27.0-31.0); MEAN CORPUSCULAR HGB CONC 30.3 g/dl (33.0-37.0); MEAN PLATELET VOLUME 10.1 fl (9.6-12.3); MONO # 0.1 10*3/uL (0.1-1.0); MONO % 1.1 % (3.0-9.0); NEUT # 9.2 10*3/uL (2.3-7.9); NEUT % 84.5 % (47.0-73.0); PLATELET COUNT AUTOMATED 341 10*3/uL (130-400); RED BLOOD COUNT 4.01 10*6/uL (4.10-5.10); RED CELL DISTRI WIDTH 14.9 % (0-14.5); WHITE BLOOD COUNT 10.8 10*3/uL (4.8-10.8)
[2023-07-29 06:52] LABS: ALKALINE PHOSPHATASE 64 U/L (46-116); BUN 13 mg/dl (9-23); CHLORIDE 98 mmol/L (98-107); FREE T4 1.14 ng/dl (0.89-1.76); POTASSIUM 3.7 mmol/L (3.4-5.1); SGPT/ALT 18 U/L (5-49); TOTAL PROTEIN 7.1 gm/dL (6.0-8.0)
[2023-07-29] MEDS ORDERED: PERFLUTREN PROTEIN-A MICROSPHR 3 ML VIAL IV ONE (08:16)
[2023-07-29] MEDS ORDERED: Enoxaparin Sodium 40 MG/0.4 ML SYR SC SCH (10:00)
[2023-07-29] MEDS ORDERED: AUBAGIO PO (10:35)
[2023-07-29] MEDS ORDERED: METFORMIN HYDR500 MG PO (11:55)
[2023-07-29] MEDS ORDERED: AZITHROMYCIN 250 ML IV SCH (12:00)
[2023-07-29] MEDS ORDERED: Ceftriaxone Sodium 1 GM in SYRINGE INFUSION 10 ML IV SCH (13:00)
[2023-07-29] MEDS ORDERED: MED. FROM HOME 1 EACH EA PO SCH (15:35)
[2023-07-29] MEDS ORDERED: LATANOPROST 0.005% 2.5 ML BOTTLE OPH SCH (22:00)
[2023-07-29] MEDS ORDERED: busPIRone Hydrochloride 15 MG TAB PO SCH (22:00)
[2023-07-29] MEDS ORDERED: CARVEDILOL 6.25 MG TAB PO SCH (22:00)
[2023-07-29] MEDS ORDERED: Duloxetine Hydrochloride 60 MG CAP PO SCH (22:00)
[2023-07-30 06:39] LABS: BASO % 0.2 % (0.0-1.0); HEMATOCRIT 36.8 % (37.0-47.0); LYMPH # 1.7 10*3/uL (1.3-4.4); LYMPH % 9.6 % (27.0-41.0); MEAN CORPUSCULAR HGB CONC 30.4 g/dl (33.0-37.0); MEAN PLATELET VOLUME 10.1 fl (9.6-12.3); MONO # 0.7 10*3/uL (0.1-1.0); MONO % 3.9 % (3.0-9.0); NEUT # 14.9 10*3/uL (2.3-7.9); NEUT % 85.9 % (47.0-73.0); PLATELET COUNT AUTOMATED 372 10*3/uL (130-400); RED CELL DISTRI WIDTH 15.3 % (0-14.5); WHITE BLOOD COUNT 17.3 10*3/uL (4.8-10.8)
[2023-07-30 06:42] LABS: BUN 17 mg/dl (9-23); CHLORIDE 100 mmol/L (98-107); POTASSIUM 4.1 mmol/L (3.4-5.1)
[2023-07-30 08:00] VITALS: BP 184/84
[2023-07-30] MEDS ORDERED: Vitamin D 1,000 IU TAB (25 MCG) PO SCH (10:00)
[2023-07-30] MEDS ORDERED: ATORVASTATIN CALCIUM 10 MG TAB PO SCH (10:00)
[2023-07-30] MEDS ORDERED: DILTIAZEM CD 120 MG CAP PO SCH (10:00)
[2023-07-30] MEDS ORDERED: LINACLOTIDE 145 MCG CAP PO SCH (10:00)
[2023-07-30 12:00] VITALS: BP 146/90; BP 156/59
[2023-07-30 16:00] VITALS: BP 147/97
[2023-07-30 20:00] VITALS: BP 142/80; BP 171/67
[2023-07-31] VITALS: BP 143/88
[2023-07-31 05:33] LABS: BUN 19 mg/dl (9-23); CHLORIDE 100 mmol/L (98-107); POTASSIUM 4.7 mmol/L (3.4-5.1)
[2023-07-31 06:21] LABS: BASO % 0.2 % (0.0-1.0); HEMATOCRIT 38.5 % (37.0-47.0); LYMPH # 1.7 10*3/uL (1.3-4.4); LYMPH % 10.4 % (27.0-41.0); MEAN CELL VOLUME 91.2 fl (81.0-99.0); MEAN CORPUSCULAR HGB 28.4 pg (27.0-31.0); MEAN CORPUSCULAR HGB CONC 31.2 g/dl (33.0-37.0); MEAN PLATELET VOLUME 10.2 fl (9.6-12.3); MONO # 0.7 10*3/uL (0.1-1.0); MONO % 4.1 % (3.0-9.0); NEUT # 13.4 10*3/uL (2.3-7.9); NEUT % 84.4 % (47.0-73.0); PLATELET COUNT AUTOMATED 378 10*3/uL (130-400); RED BLOOD COUNT 4.22 10*6/uL (4.10-5.10); RED CELL DISTRI WIDTH 15.4 % (0-14.5); WHITE BLOOD COUNT 15.9 10*3/uL (4.8-10.8)
[2023-07-31 08:00] VITALS: BP 153/71
[2023-07-31 12:00] VITALS: BP 110/59
[2023-07-31 16:00] VITALS: BP 130/60
[2023-07-31 20:00] VITALS: BP 155/71
[2023-08-01] VITALS: BP 136/76
[2023-08-01 08:00] VITALS: BP 155/77
[2023-08-01] MEDS ORDERED: methylPREDNISolone sod succ 40 MG VIAL IV SCH (10:00)
[2023-08-01 12:00] VITALS: BP 153/85
[2023-08-01 16:00] VITALS: BP 140/70
[2023-08-01 20:00] VITALS: BP 165/94
[2023-08-02] VITALS: BP 156/80
[2023-08-02] MEDS ORDERED: ALENDRONATE SODIUM 70 MG TAB PO SCH (06:00)
[2023-08-02 08:00] VITALS: BP 158/90
[2023-08-02 12:00] VITALS: BP 145/68
[2023-08-02 20:00] VITALS: BP 155/68
[2023-08-03] VITALS: BP 153/75
[2023-08-03 08:00] VITALS: BP 148/60
[2023-08-03 12:00] VITALS: BP 152/72
[2023-08-03 16:00] VITALS: BP 151/74
[2023-08-03 20:00] VITALS: BP 137/74
[2023-08-04] VITALS: BP 150/63
[2023-08-04 08:00] VITALS: BP 151/74
[2023-08-04 12:00] VITALS: BP 141/57
[2023-08-04 16:00] VITALS: BP 141/96
[2023-08-04 20:00] VITALS: BP 141/77; BP 143/63
[2023-08-05] VITALS: BP 153/60
[2023-08-05 08:00] VITALS: BP 139/71
[2023-08-05 12:00] VITALS: BP 137/81
[2023-08-05] MEDS ORDERED: SEPTDS PO (13:05)
[2023-08-05] MEDS ORDERED: MUCUS RELIEF600 MG PO (13:07)
[2023-08-05] MEDS ORDERED: Humalog SQ (13:07)
[2023-08-05] MEDS ORDERED: PREDNISONE10 MG PO (13:22)
== END 2023-08-05 15:11 | DRG 871 ==
LOC: ED 11:13 → EDHOLD 15:16 → 4E 15:16
PROVIDERS: Internal Medicine; Student in an Organized Health Care Education/Training Program; ADMIT Internal Medicine; ATTEND Internal Medicine
PROC: 5A09357 Assistance with Respiratory Ventilation, Less than 24 Consecutive Hours, Continuous Positive Airway Pressure (ICD-10-PCS; principal; 2023-07-30)
PROC: 5A09357 Assistance with Respiratory Ventilation, Less than 24 Consecutive Hours, Continuous Positive Airway Pressure (ICD-10-PCS; 2023-08-02)
PROC: 5A09357 Assistance with Respiratory Ventilation, Less than 24 Consecutive Hours, Continuous Positive Airway Pressure (ICD-10-PCS; 2023-08-03)
DX: A41.9 Sepsis, unspecified organism (principal); E43 Unspecified severe protein-calorie malnutrition; J96.21 Acute and chronic respiratory failure with hypoxia; J96.22 Acute and chronic respiratory failure with hypercapnia; J15.69 Pneumonia due to other Gram-negative bacteria; J44.1 Chronic obstructive pulmonary disease with (acute) exacerbation; J45.51 Severe persistent asthma with (acute) exacerbation; J45.901 Unspecified asthma with (acute) exacerbation; I11.0 Hypertensive heart disease with heart failure; I50.9 Heart failure, unspecified; G35 Multiple sclerosis; F41.9 Anxiety disorder, unspecified; F32.A Depression, unspecified; E66.01 Morbid (severe) obesity due to excess calories; D64.9 Anemia, unspecified; R73.9 Hyperglycemia, unspecified; R65.20 Severe sepsis without septic shock; J20.9 Acute bronchitis, unspecified; G47.33 Obstructive sleep apnea (adult) (pediatric); Z79.899 Other long term (current) drug therapy; Z79.01 Long term (current) use of anticoagulants; Z79.2 Long term (current) use of antibiotics; Z79.84 Long term (current) use of oral hypoglycemic drugs; Z90.49 Acquired absence of other specified parts of digestive tract; Z90.710 Acquired absence of both cervix and uterus; Z87.891 Personal history of nicotine dependence; Z82.49 Family history of ischemic heart disease and other diseases of the circulatory system; Z82.5 Family history of asthma and other chronic lower respiratory diseases; Z83.3 Family history of diabetes mellitus; Z80.8 Family history of malignant neoplasm of other organs or systems; Z99.81 Dependence on supplemental oxygen

== ENCOUNTER 2023-11-11 14:01 | Inpatient (IN) | payer OTHER, MEDICAID ==
[2023-11-11] VITALS (7 sets, daily range): BP systolic 127–161; BP diastolic 55–88
[~2023-11-11] VITALS: Ht 172.7 cm; Wt 153.0 kg
[~2023-11-11 14:01] MED LIST changes: +AUBAGIO PO; +Humalog SQ; +METFORMIN HYDR500 MG PO; +SEPTDS PO
[2023-11-11] MEDS ORDERED: methylPREDNISolone sod succ 40 MG VIAL IV ONE (14:35)
[2023-11-11] MEDS ORDERED: Albuterol Sulf/Ipratropium 3 ML VIAL NEB ONE (14:35)
[2023-11-11 14:51] LABS: BASO % 0.2 % (0.0-1.0); HEMATOCRIT 38.1 % (37.0-47.0); LYMPH % 10.2 % (27.0-41.0); MEAN CELL VOLUME 88.6 fl (81.0-99.0); MEAN CORPUSCULAR HGB CONC 29.4 g/dl (33.0-37.0); MEAN PLATELET VOLUME 9.6 fl (9.6-12.3); MONO # 1.3 10*3/uL (0.1-1.0); MONO % 6.7 % (3.0-9.0); NEUT # 15.8 10*3/uL (2.3-7.9); NEUT % 82.5 % (47.0-73.0); PLATELET COUNT AUTOMATED 352 10*3/uL (130-400); RED CELL DISTRI WIDTH 15.3 % (0-14.5); WHITE BLOOD COUNT 19.2 10*3/uL (4.8-10.8)
[2023-11-11 15:01] LABS: ACT PARTIAL THROMBO TIME 28.5 SECONDS (20.0-32.1)
[2023-11-11 15:07] LABS: ALKALINE PHOSPHATASE 93 U/L (46-116); BUN 10 mg/dl (9-23); CHLORIDE 99 mmol/L (98-107); POTASSIUM 4.1 mmol/L (3.4-5.1); SGPT/ALT 7 U/L (5-49); TOTAL PROTEIN 7.9 gm/dL (6.0-8.0)
[2023-11-11] MEDS ORDERED: Ceftriaxone Sodium 1 GM/10 ML SYR IV ONE (15:25)
[2023-11-11] MEDS ORDERED: AZITHROMYCIN 250 ML IV ONE (15:25)
[2023-11-11 16:14] LABS: BILIRUBIN Negative (Negative); BLOOD Negative (Negative); CLARITY Clear (Clear); COLOR Yellow (Yellow); GLUCOSE Trace (Negative); KETONE Trace (Negative); LEUKO ESTERASE Negative (Negative); NITRITE Negative (Negative); PH 5.5 (4.5-8.0); UROBILINOGEN 0.2 E.U./dl (0.0-1.0)
[2023-11-11 16:25] LABS: BACTERIA 1+; FINE GRANULAR CAST 0-2; MUCOUS 1+; RBC 0-2 rbc/hpf (0-2); WBC 0-2 wbc/hpf (0-5)
[2023-11-11] MEDS ORDERED: HYDROXYCHLOROQ200 M1 PO (16:28)
[2023-11-11] MEDS ORDERED: ZESTRIL10 MG PO (16:31)
[2023-11-11] MEDS ORDERED: COPAXONE40 MG/1 ML SQ (16:34)
[2023-11-11] MEDS ORDERED: LASIX20 MG PO (16:37)
[2023-11-11] MEDS ORDERED: SODIUM CHLORIDE 0.9% 1,000 ML IV ONE (16:40)
[2023-11-11] MEDS ORDERED: BISACODYL 10 MG SUPP R PRN (16:45)
[2023-11-11] MEDS ORDERED: TEMAZEPAM 15 MG CAP PO PRN (16:45)
[2023-11-11] MEDS ORDERED: MORPHINE Sulfate 2 MG/ML SYR IV PRN (16:45)
[2023-11-11] MEDS ORDERED: ACETAMINOPHEN 325 MG TAB PO PRN (16:45)
[2023-11-11] MEDS ORDERED: Magnesium Hydroxide 30 ML UDC PO PRN (16:45)
[2023-11-11] MEDS ORDERED: BISACODYL 5 MG TAB PO PRN (16:45)
[2023-11-11] MEDS ORDERED: Acetaminophen/Hydrocodone 5 MG/325 MG TABLET PO PRN (16:45)
[2023-11-11] MEDS ORDERED: Ondansetron Hydrochloride 4 MG/2 ML VIAL IV PRN (16:45)
[2023-11-11] MEDS ORDERED: Albuterol Sulf/Ipratropium 3 ML VIAL NEB PRN (16:50)
[2023-11-11] MEDS ORDERED: DEXTROSE 10 % IN WATER 250 ML IV PRN (18:05)
[2023-11-11] MEDS ORDERED: Duloxetine Hydrochloride 60 MG CAP PO SCH (22:00)
[2023-11-11] MEDS ORDERED: GUAIFENESIN 600 MG TAB ER PO SCH (22:00)
[2023-11-11] MEDS ORDERED: busPIRone Hydrochloride 15 MG TAB PO SCH (22:00)
[2023-11-11] MEDS ORDERED: LATANOPROST 0.005% 2.5 ML BOTTLE INTRAOC SCH (22:00)
[2023-11-11] MEDS ORDERED: INSULIN LISPRO 1 UNIT/0.01 ML SQ SCH (22:00)
[2023-11-11] MEDS ORDERED: CARVEDILOL 6.25 MG TAB PO SCH (22:00)
[2023-11-12 02:21] VITALS: BP 111/58
[2023-11-12 06:28] VITALS: BP 121/48
[2023-11-12 07:19] LABS: BASO # 0.1 10*3/uL (0.0-0.1); BASO % 0.3 % (0.0-1.0); EOS % 0.1 % (1.0-4.0); HEMATOCRIT 35.6 % (37.0-47.0); LYMPH # 1.8 10*3/uL (1.3-4.4); MEAN CELL VOLUME 90.1 fl (81.0-99.0); MEAN CORPUSCULAR HGB 26.1 pg (27.0-31.0); MEAN CORPUSCULAR HGB CONC 28.9 g/dl (33.0-37.0); MEAN PLATELET VOLUME 9.6 fl (9.6-12.3); MONO # 0.5 10*3/uL (0.1-1.0); MONO % 3.6 % (3.0-9.0); NEUT # 12.6 10*3/uL (2.3-7.9); NEUT % 83.5 % (47.0-73.0); PLATELET COUNT AUTOMATED 332 10*3/uL (130-400); RED BLOOD COUNT 3.95 10*6/uL (4.10-5.10); RED CELL DISTRI WIDTH 15.4 % (0-14.5)
[2023-11-12 08:28] LABS: ALKALINE PHOSPHATASE 76 U/L (46-116); BUN 12 mg/dl (9-23); CHLORIDE 101 mmol/L (98-107); CHOLESTEROL 133 mg/dL (<200); LDL CHOLESTEROL 68 mg/dL (9-159); POTASSIUM 4.7 mmol/L (3.4-5.1); SGPT/ALT 7 U/L (5-49); TOTAL PROTEIN 7.1 gm/dL (6.0-8.0); TRIGLYCERIDES 86 mg/dl (<150)
[2023-11-12] MEDS ORDERED: Montelukast Sodium 10 MG TAB PO SCH (10:00)
[2023-11-12] MEDS ORDERED: LISINOPRIL 10 MG TAB PO SCH (10:00)
[2023-11-12] MEDS ORDERED: methylPREDNISolone sod succ 40 MG VIAL IV SCH (10:00)
[2023-11-12] MEDS ORDERED: LORATADINE 10 MG TAB PO SCH (10:00)
[2023-11-12] MEDS ORDERED: FUROSEMIDE 20 MG/2 ML VIAL IV SCH (10:00)
[2023-11-12] MEDS ORDERED: Enoxaparin Sodium 40 MG/0.4 ML SYR SC SCH (10:00)
[2023-11-12] MEDS ORDERED: ATORVASTATIN CALCIUM 10 MG TAB PO SCH (10:00)
[2023-11-12 12:00] VITALS: BP 127/55
[2023-11-12] MEDS ORDERED: Cefepime Hydrochloride 2 GM,IV 1 EA in SODIUM CHLORIDE 0.9% 50 ML IV SCH (14:00)
[2023-11-12 15:00] VITALS: BP 132/55
[2023-11-12] MEDS ORDERED: AZITHROMYCIN 250 ML IV SCH (15:00)
[2023-11-12 16:00] VITALS: BP 132/55
[2023-11-12] MEDS ORDERED: Ceftriaxone Sodium 1 GM in SYRINGE INFUSION 10 ML IV SCH (16:00)
[2023-11-12] MEDS ORDERED: Albuterol Sulf/Ipratropium 3 ML VIAL NEB SCH (16:50)
[2023-11-12 20:00] VITALS: BP 136/56
[2023-11-12] MEDS ORDERED: CLOBETASOL PROP15 G2 TP (22:10)
[2023-11-12] MEDS ORDERED: CLOBETASOL PROPIONATE 30 GM TUBE T SCH (22:17)
[2023-11-12] MEDS ORDERED: NYSTATIN 15 GM BOT T SCH (22:17)
[2023-11-13] VITALS: BP 135/66
[2023-11-13 05:40] LABS: BUN 15 mg/dl (9-23); CHLORIDE 100 mmol/L (98-107); POTASSIUM 4.9 mmol/L (3.4-5.1)
[2023-11-13 06:01] LABS: BASO # 0.1 10*3/uL (0.0-0.1); BASO % 0.3 % (0.0-1.0); HEMATOCRIT 34.5 % (37.0-47.0); LYMPH # 1.5 10*3/uL (1.3-4.4); LYMPH % 9.2 % (27.0-41.0); MEAN CELL VOLUME 87.1 fl (81.0-99.0); MEAN CORPUSCULAR HGB CONC 29.9 g/dl (33.0-37.0); MEAN PLATELET VOLUME 10.1 fl (9.6-12.3); MONO # 0.3 10*3/uL (0.1-1.0); MONO % 1.8 % (3.0-9.0); NEUT # 14.7 10*3/uL (2.3-7.9); NEUT % 88.2 % (47.0-73.0); NUCLEATED RED BLOOD CELL 0.1 % (0.0-0.0); PLATELET COUNT AUTOMATED 345 10*3/uL (130-400); RED BLOOD COUNT 3.96 10*6/uL (4.10-5.10); RED CELL DISTRI WIDTH 15.5 % (0-14.5); WHITE BLOOD COUNT 16.7 10*3/uL (4.8-10.8)
[2023-11-13 08:00] VITALS: BP 152/63
[2023-11-13] MEDS ORDERED: MED. FROM HOME 1 EACH EA PO SCH (10:00)
[2023-11-13 12:00] VITALS: BP 144/81
[2023-11-13 12:08] LABS: IMMUNOGLOBULIN M, QNT 39 mg/dL (26-217)
[2023-11-13 16:00] VITALS: BP 132/50
[2023-11-13 18:07] LABS: IGG SUBCLASS 1 780 mg/dL (248-810); IGG SUBCLASS 2 374 mg/dL (130-555); IGG SUBCLASS 3 65 mg/dL (15-102); IMMUNOGLOBULIN G, QNT 1547 mg/dL (586-1602)
[2023-11-13 20:00] VITALS: BP 138/83
[2023-11-14] VITALS: BP 136/66
[2023-11-14 06:18] LABS: BUN 22 mg/dl (9-23); CHLORIDE 99 mmol/L (98-107); POTASSIUM 4.6 mmol/L (3.4-5.1)
[2023-11-14 06:19] LABS: BASO % 0.3 % (0.0-1.0); LYMPH # 1.3 10*3/uL (1.3-4.4); LYMPH % 9.3 % (27.0-41.0); MEAN CELL VOLUME 89.6 fl (81.0-99.0); MEAN CORPUSCULAR HGB 26.2 pg (27.0-31.0); MEAN CORPUSCULAR HGB CONC 29.2 g/dl (33.0-37.0); MEAN PLATELET VOLUME 10.2 fl (9.6-12.3); MONO # 0.6 10*3/uL (0.1-1.0); NEUT # 11.9 10*3/uL (2.3-7.9); PLATELET COUNT AUTOMATED 367 10*3/uL (130-400); RED BLOOD COUNT 4.13 10*6/uL (4.10-5.10); RED CELL DISTRI WIDTH 15.8 % (0-14.5); WHITE BLOOD COUNT 13.9 10*3/uL (4.8-10.8)
[2023-11-14 08:00] VITALS: BP 156/77
[2023-11-14 12:00] VITALS: BP 157/69
[2023-11-14 16:00] VITALS: BP 133/58
[2023-11-14 20:00] VITALS: BP 151/64
[2023-11-15] VITALS: BP 142/62
[2023-11-15 08:00] VITALS: BP 148/81
[2023-11-15 12:00] VITALS: BP 143/59
[2023-11-15 16:00] VITALS: BP 155/76
[2023-11-15 20:00] VITALS: BP 134/61
[2023-11-16] VITALS: BP 136/52
[2023-11-16 08:00] VITALS: BP 137/90
[2023-11-16] MEDS ORDERED: predniSONE 10 MG TAB PO SCH (10:00)
[2023-11-16] MEDS ORDERED: DOXYCYCLINE HY100 M3 PO (12:01)
[2023-11-16] MEDS ORDERED: PREDNISONE10 MG PO (16:20)
== END 2023-11-16 12:39 | disposition home health service (06) | DRG 871 ==
LOC: ED 14:01 → 4E 15:22 → EDHOLD 15:22 → 4E 11-12 13:29
PROVIDERS: Emergency Medicine; Internal Medicine; Internal Medicine Critical Care Medicine; Student in an Organized Health Care Education/Training Program; ADMIT Internal Medicine; ATTEND Internal Medicine
PROC: 5A09357 Assistance with Respiratory Ventilation, Less than 24 Consecutive Hours, Continuous Positive Airway Pressure (ICD-10-PCS; principal; 2023-11-11)
PROC: 5A09357 Assistance with Respiratory Ventilation, Less than 24 Consecutive Hours, Continuous Positive Airway Pressure (ICD-10-PCS; 2023-11-13)
PROC: 5A09357 Assistance with Respiratory Ventilation, Less than 24 Consecutive Hours, Continuous Positive Airway Pressure (ICD-10-PCS; 2023-11-14)
PROC: 5A0935A Assistance with Respiratory Ventilation, Less than 24 Consecutive Hours, High Flow/Velocity Cannula (ICD-10-PCS; 2023-11-14)
PROC: 5A09357 Assistance with Respiratory Ventilation, Less than 24 Consecutive Hours, Continuous Positive Airway Pressure (ICD-10-PCS; 2023-11-15)
PROC: 5A0935A Assistance with Respiratory Ventilation, Less than 24 Consecutive Hours, High Flow/Velocity Cannula (ICD-10-PCS; 2023-11-15)
DX: A41.9 Sepsis, unspecified organism (principal); I50.31 Acute diastolic (congestive) heart failure; J69.0 Pneumonitis due to inhalation of food and vomit; J96.22 Acute and chronic respiratory failure with hypercapnia; J96.21 Acute and chronic respiratory failure with hypoxia; J44.1 Chronic obstructive pulmonary disease with (acute) exacerbation; E44.1 Mild protein-calorie malnutrition; D80.1 Nonfamilial hypogammaglobulinemia; E87.29 Other acidosis; Z68.43 Body mass index [BMI] 50.0-59.9, adult; J45.901 Unspecified asthma with (acute) exacerbation; R65.20 Severe sepsis without septic shock; G47.33 Obstructive sleep apnea (adult) (pediatric); E66.01 Morbid (severe) obesity due to excess calories; I11.0 Hypertensive heart disease with heart failure; J98.4 Other disorders of lung; D64.9 Anemia, unspecified; R73.9 Hyperglycemia, unspecified; F41.9 Anxiety disorder, unspecified; F32.A Depression, unspecified; Z91.040 Latex allergy status; Z79.899 Other long term (current) drug therapy; Z90.49 Acquired absence of other specified parts of digestive tract; Z90.710 Acquired absence of both cervix and uterus; Z87.891 Personal history of nicotine dependence; Z82.49 Family history of ischemic heart disease and other diseases of the circulatory system; Z82.5 Family history of asthma and other chronic lower respiratory diseases; Z79.51 Long term (current) use of inhaled steroids; Z79.84 Long term (current) use of oral hypoglycemic drugs

== ENCOUNTER 2023-12-13 03:44 | Inpatient (IN) | payer OTHER, MEDICAID ==
[~2023-12-13] VITALS: Ht 172.7 cm; Wt 151.7 kg
[~2023-12-13 03:44] MED LIST changes: +CLOBETASOL PROP15 G2 TP; +HYDROXYCHLOROQ200 M1 PO; +ZESTRIL10 MG PO
[2023-12-13] MEDS ORDERED: Albuterol Sulf/Ipratropium 3 ML VIAL NEB ONE (03:50)
[2023-12-13] MEDS ORDERED: LORazepam 2 MG/ML VIAL IV ONE (03:55)
[2023-12-13 03:59] VITALS: BP 152/76
[2023-12-13 04:08] LABS: HEMATOCRIT 43.4 % (37.0-47.0); MANUAL DIFF REFLEX YES; MEAN CELL VOLUME 89.5 fl (81.0-99.0); MEAN CORPUSCULAR HGB 25.8 pg (27.0-31.0); MEAN CORPUSCULAR HGB CONC 28.8 g/dl (33.0-37.0); MEAN PLATELET VOLUME 9.7 fl (9.6-12.3); NUCLEATED RED BLOOD CELL 0.1 % (0.0-0.0); PLATELET COUNT AUTOMATED 354 10*3/uL (130-400); RED BLOOD COUNT 4.85 10*6/uL (4.10-5.10); RED CELL DISTRI WIDTH 17.8 % (0-14.5); WHITE BLOOD COUNT 25.3 10*3/uL (4.8-10.8)
[2023-12-13] MEDS ORDERED: VITAMIN D350 MC2 PO (04:18)
[2023-12-13 04:25] LABS: BUN 13 mg/dl (9-23); CHLORIDE 100 mmol/L (98-107); POTASSIUM 3.9 mmol/L (3.4-5.1)
[2023-12-13] MEDS ORDERED: SODIUM CHLORIDE 0.9% 1,000 ML IV SCH (04:30)
[2023-12-13] MEDS ORDERED: Ceftriaxone Sodium 1 GM/10 ML SYR IV ONE (04:30)
[2023-12-13] MEDS ORDERED: AZITHROMYCIN 250 ML IV ONE (04:30)
[2023-12-13 04:32] LABS: OVALOCYTES FEW; PLATELET SUFFICIENCY NORMAL (NORMAL); POLYCHROMASIA SLIGHT; ROULEAUX SLIGHT; STOMATOCYTE FEW; TOTAL CELLS COUNTED 100 #CELLS
[2023-12-13 04:40] LABS: ABG O2 SATURATION 92.6 % (94.0-98.0); ARTERIAL BLOOD GAS PO2 75.9 mmHg (83.0-108.0)
[2023-12-13 04:41] LABS: ABG BASE EXCESS 4.6 mmol/L (-2.0-3.0)
[2023-12-13 04:44] LABS: ARTERIAL BLOOD GAS PH 7.241 (7.350-7.450)
[2023-12-13] MEDS ORDERED: Magnesium Hydroxide 30 ML UDC PO PRN (05:40)
[2023-12-13] MEDS ORDERED: Ondansetron Hydrochloride 4 MG/2 ML VIAL IV PRN (05:40)
[2023-12-13] MEDS ORDERED: ACETAMINOPHEN 325 MG TAB PO PRN (05:40)
[2023-12-13] MEDS ORDERED: DEXTROSE 10 % IN WATER 250 ML IV PRN (05:50)
[2023-12-13] MEDS ORDERED: methylPREDNISolone sod succ 125 MG VIAL IV ONE (05:55)
[2023-12-13 06:00] VITALS: BP 177/72
[2023-12-13] MEDS ORDERED: IPRATROPIUM BROMIDE 0.5 MG/2.5 ML AMP NEB SCH (06:20)
[2023-12-13] MEDS ORDERED: INSULIN LISPRO 1 UNIT/0.01 ML SQ SCH (07:30)
[2023-12-13 08:00] VITALS: BP 152/74
[2023-12-13] MEDS ORDERED: Cefepime Hydrochloride 2 GM in SODIUM CHLORIDE 0.9% 50 ML IV SCH (08:00)
[2023-12-13 09:35] LABS: ABG O2 SATURATION 94.6 % (94.0-98.0); ARTERIAL BLOOD GAS PH 7.269 (7.350-7.450); ARTERIAL BLOOD GAS PO2 81.6 mmHg (83.0-108.0)
[2023-12-13 09:36] LABS: ABG BASE EXCESS 3.2 mmol/L (-2.0-3.0)
[2023-12-13] MEDS ORDERED: Enoxaparin Sodium 40 MG/0.4 ML SYR SC SCH (10:00)
[2023-12-13] MEDS ORDERED: busPIRone Hydrochloride 15 MG TAB PO SCH (10:00)
[2023-12-13] MEDS ORDERED: Hydroxychloroquine Sulfate 200 MG TAB PO SCH (10:00)
[2023-12-13] MEDS ORDERED: AQUAPHOR OINTMENT Base 50 GM TUBE T SCH (10:00)
[2023-12-13] MEDS ORDERED: Montelukast Sodium 10 MG TAB PO SCH (10:00)
[2023-12-13] MEDS ORDERED: Duloxetine Hydrochloride 60 MG CAP PO SCH (10:00)
[2023-12-13] MEDS ORDERED: CARVEDILOL 6.25 MG TAB PO SCH (10:00)
[2023-12-13 12:00] VITALS: BP 133/59
[2023-12-13 15:29] LABS: ABG O2 SATURATION 94.4 % (94.0-98.0); ARTERIAL BLOOD GAS PH 7.341 (7.350-7.450); ARTERIAL BLOOD GAS PO2 71.9 mmHg (83.0-108.0)
[2023-12-13 15:30] LABS: ABG BASE EXCESS 3.6 mmol/L (-2.0-3.0)
[2023-12-13 16:00] VITALS: BP 131/79
[2023-12-13] MEDS ORDERED: methylPREDNISolone sod succ 40 MG VIAL IV SCH (18:00)
[2023-12-13 20:00] VITALS: BP 142/82
[2023-12-13] MEDS ORDERED: LATANOPROST 0.005% 2.5 ML BOTTLE OPH SCH ×2 (22:00)
[2023-12-14] VITALS: BP 151/61
[2023-12-14 04:00] VITALS: BP 146/47
[2023-12-14 05:22] LABS: BUN 11 mg/dl (9-23); CHLORIDE 104 mmol/L (98-107); POTASSIUM 4.1 mmol/L (3.4-5.1)
[2023-12-14] MEDS ORDERED: AZITHROMYCIN 250 ML IV SCH (06:00)
[2023-12-14 06:15] LABS: BASO % 0.2 % (0.0-1.0); HEMATOCRIT 36.3 % (37.0-47.0); LYMPH # 1.5 10*3/uL (1.3-4.4); LYMPH % 9.1 % (27.0-41.0); MEAN CORPUSCULAR HGB CONC 29.2 g/dl (33.0-37.0); MEAN PLATELET VOLUME 10.4 fl (9.6-12.3); MONO # 0.7 10*3/uL (0.1-1.0); MONO % 3.9 % (3.0-9.0); NEUT # 14.7 10*3/uL (2.3-7.9); NEUT % 86.4 % (47.0-73.0); NUCLEATED RED BLOOD CELL 0.1 % (0.0-0.0); PLATELET COUNT AUTOMATED 299 10*3/uL (130-400); RED BLOOD COUNT 4.08 10*6/uL (4.10-5.10); RED CELL DISTRI WIDTH 17.7 % (0-14.5)
[2023-12-14 07:06] LABS: ABG BASE EXCESS 3.2 mmol/L (-2.0-3.0); ABG O2 SATURATION 96.3 % (94.0-98.0); ARTERIAL BLOOD GAS PH 7.367 (7.350-7.450); ARTERIAL BLOOD GAS PO2 83.8 mmHg (83.0-108.0)
[2023-12-14 08:00] VITALS: BP 152/76
[2023-12-14] MEDS ORDERED: GUAIFENESIN 600 MG TAB ER PO SCH (10:00)
[2023-12-14 11:30] VITALS: BP 142/70
[2023-12-14 16:00] VITALS: BP 160/87
[2023-12-14 20:00] VITALS: BP 168/80
[2023-12-15] VITALS: BP 141/78
[2023-12-15 04:00] VITALS: BP 158/97
[2023-12-15 06:55] LABS: BASO % 0.2 % (0.0-1.0); HEMATOCRIT 37.9 % (37.0-47.0); LYMPH # 1.5 10*3/uL (1.3-4.4); LYMPH % 8.8 % (27.0-41.0); MEAN CELL VOLUME 88.6 fl (81.0-99.0); MEAN CORPUSCULAR HGB 26.2 pg (27.0-31.0); MEAN CORPUSCULAR HGB CONC 29.6 g/dl (33.0-37.0); MEAN PLATELET VOLUME 10.2 fl (9.6-12.3); MONO # 0.9 10*3/uL (0.1-1.0); MONO % 5.1 % (3.0-9.0); NEUT # 14.3 10*3/uL (2.3-7.9); NEUT % 85.4 % (47.0-73.0); NUCLEATED RED BLOOD CELL 0.1 % (0.0-0.0); PLATELET COUNT AUTOMATED 308 10*3/uL (130-400); RED BLOOD COUNT 4.28 10*6/uL (4.10-5.10); RED CELL DISTRI WIDTH 18.2 % (0-14.5); WHITE BLOOD COUNT 16.7 10*3/uL (4.8-10.8)
[2023-12-15 07:55] LABS: BUN 14 mg/dl (9-23); CHLORIDE 104 mmol/L (98-107); POTASSIUM 4.6 mmol/L (3.4-5.1)
[2023-12-15 08:00] VITALS: BP 149/75
[2023-12-15] MEDS ORDERED: ATORVASTATIN CALCIUM 10 MG TAB PO SCH (10:00)
[2023-12-15 12:00] VITALS: BP 150/90
[2023-12-15 15:08] LABS: MYCOPLASMA PNEUMONIAE IGG 149 U/mL (0-99); MYCOPLASMA PNEUMONIAE IGM 778 U/mL (0-769)
[2023-12-15 16:00] VITALS: BP 150/96
[2023-12-15 20:00] VITALS: BP 168/86
[2023-12-16] VITALS: BP 144/88
[2023-12-16] MEDS ORDERED: CEFEPIME HCL IN DEXTROSE 5 % 50 ML IV SCH
[2023-12-16 05:08] LABS: BUN 12 mg/dl (9-23); CHLORIDE 102 mmol/L (98-107); POTASSIUM 4.8 mmol/L (3.4-5.1)
[2023-12-16 06:21] LABS: BASO % 0.2 % (0.0-1.0); HEMATOCRIT 38.3 % (37.0-47.0); LYMPH # 1.9 10*3/uL (1.3-4.4); LYMPH % 13.8 % (27.0-41.0); MEAN CELL VOLUME 88.5 fl (81.0-99.0); MEAN CORPUSCULAR HGB 26.3 pg (27.0-31.0); MEAN CORPUSCULAR HGB CONC 29.8 g/dl (33.0-37.0); MEAN PLATELET VOLUME 11.2 fl (9.6-12.3); MONO # 1.2 10*3/uL (0.1-1.0); MONO % 8.4 % (3.0-9.0); NEUT # 10.8 10*3/uL (2.3-7.9); NEUT % 77.1 % (47.0-73.0); PLATELET COUNT AUTOMATED 280 10*3/uL (130-400); RED BLOOD COUNT 4.33 10*6/uL (4.10-5.10)
[2023-12-16 08:00] VITALS: BP 161/83
[2023-12-16] MEDS ORDERED: FUROSEMIDE 20 MG/2 ML VIAL IV ONE (08:10)
[2023-12-16 16:00] VITALS: BP 154/89
[2023-12-16 20:00] VITALS: BP 202/110
[2023-12-17] VITALS: BP 197/80
[2023-12-17 05:12] LABS: BUN 14 mg/dl (9-23); CHLORIDE 100 mmol/L (98-107); POTASSIUM 4.9 mmol/L (3.4-5.1)
[2023-12-17 06:16] LABS: BASO % 0.1 % (0.0-1.0); HEMATOCRIT 39.5 % (37.0-47.0); LYMPH # 2.3 10*3/uL (1.3-4.4); LYMPH % 17.4 % (27.0-41.0); MEAN CELL VOLUME 86.6 fl (81.0-99.0); MEAN CORPUSCULAR HGB 26.3 pg (27.0-31.0); MEAN CORPUSCULAR HGB CONC 30.4 g/dl (33.0-37.0); MEAN PLATELET VOLUME 10.8 fl (9.6-12.3); MONO # 1.2 10*3/uL (0.1-1.0); MONO % 9.2 % (3.0-9.0); NEUT # 9.5 10*3/uL (2.3-7.9); NEUT % 72.6 % (47.0-73.0); PLATELET COUNT AUTOMATED 284 10*3/uL (130-400); RED BLOOD COUNT 4.56 10*6/uL (4.10-5.10); RED CELL DISTRI WIDTH 17.8 % (0-14.5); WHITE BLOOD COUNT 13.1 10*3/uL (4.8-10.8)
[2023-12-17 07:52] VITALS: BP 156/76
[2023-12-17] MEDS ORDERED: FUROSEMIDE 20 MG/2 ML VIAL IV ONE (07:55)
[2023-12-17] MEDS ORDERED: LISINOPRIL 10 MG TAB PO SCH (09:10)
[2023-12-17 10:00] VITALS: BP 134/95
[2023-12-17] MEDS ORDERED: LEVOFLOXACIN 150 ML IV SCH (10:00)
[2023-12-17] MEDS ORDERED: FUROSEMIDE 20 MG TAB PO SCH (10:00)
[2023-12-17 12:00] VITALS: BP 150/80
[2023-12-17 16:00] VITALS: BP 156/92
[2023-12-17 20:05] VITALS: BP 130/87
[2023-12-18 05:38] LABS: BUN 19 mg/dl (9-23); CHLORIDE 98 mmol/L (98-107); POTASSIUM 4.3 mmol/L (3.4-5.1)
[2023-12-18 06:21] LABS: HEMATOCRIT 38.6 % (37.0-47.0); MEAN CELL VOLUME 84.6 fl (81.0-99.0); MEAN CORPUSCULAR HGB 25.7 pg (27.0-31.0); MEAN CORPUSCULAR HGB CONC 30.3 g/dl (33.0-37.0); MEAN PLATELET VOLUME 11.1 fl (9.6-12.3); PLATELET COUNT AUTOMATED 295 10*3/uL (130-400); RED BLOOD COUNT 4.56 10*6/uL (4.10-5.10); RED CELL DISTRI WIDTH 17.7 % (0-14.5); WHITE BLOOD COUNT 13.3 10*3/uL (4.8-10.8)
[2023-12-18 06:25] LABS: MANUAL DIFF REFLEX YES
[2023-12-18 07:09] LABS: TOTAL CELLS COUNTED 100 #CELLS
[2023-12-18 07:10] LABS: PLATELET SUFFICIENCY NORMAL (NORMAL); STOMATOCYTE FEW
[2023-12-18 08:00] VITALS: BP 130/83
[2023-12-18] MEDS ORDERED: FUROSEMIDE 20 MG/2 ML VIAL IV SCH (08:00)
[2023-12-18] MEDS ORDERED: FUROSEMIDE 20 MG IV SCH (10:00)
[2023-12-18 11:53] VITALS: BP 154/82
[2023-12-18] MEDS ORDERED: LEVOFLOXACIN750 M2 PO (14:08)
[2023-12-18] MEDS ORDERED: MUCUS RELIEF E600 MG PO (14:08)
[2023-12-18] MEDS ORDERED: LISINOPRIL10 M1 PO (14:08)
[2023-12-18] MEDS ORDERED: PREDNISONE10 MG PO (14:08)
== END 2023-12-18 15:30 | disposition home or self-care (01) | DRG 871 ==
LOC: ED 03:44 → ICCU 05:01 → EDHOLD 05:01 → 4E 05:17 → EDHOLD 05:31 → ICCU 05:40
PROVIDERS: Internal Medicine; Internal Medicine Critical Care Medicine; Student in an Organized Health Care Education/Training Program; ADMIT Family Medicine; ATTEND Family Medicine
PROC: 5A09357 Assistance with Respiratory Ventilation, Less than 24 Consecutive Hours, Continuous Positive Airway Pressure (ICD-10-PCS; principal; 2023-12-13)
PROC: 5A09357 Assistance with Respiratory Ventilation, Less than 24 Consecutive Hours, Continuous Positive Airway Pressure (ICD-10-PCS; 2023-12-14)
PROC: 5A09357 Assistance with Respiratory Ventilation, Less than 24 Consecutive Hours, Continuous Positive Airway Pressure (ICD-10-PCS; 2023-12-15)
PROC: 5A09357 Assistance with Respiratory Ventilation, Less than 24 Consecutive Hours, Continuous Positive Airway Pressure (ICD-10-PCS; 2023-12-17)
PROC: 5A09357 Assistance with Respiratory Ventilation, Less than 24 Consecutive Hours, Continuous Positive Airway Pressure (ICD-10-PCS; 2023-12-18)
DX: A41.9 Sepsis, unspecified organism (principal); G93.41 Metabolic encephalopathy; J96.22 Acute and chronic respiratory failure with hypercapnia; J96.21 Acute and chronic respiratory failure with hypoxia; J15.69 Pneumonia due to other Gram-negative bacteria; J44.1 Chronic obstructive pulmonary disease with (acute) exacerbation; J44.0 Chronic obstructive pulmonary disease with (acute) lower respiratory infection; J45.41 Moderate persistent asthma with (acute) exacerbation; Z68.43 Body mass index [BMI] 50.0-59.9, adult; F41.9 Anxiety disorder, unspecified; D72.825 Bandemia; R73.9 Hyperglycemia, unspecified; Z20.822 Contact with and (suspected) exposure to COVID-19; F32.4 Major depressive disorder, single episode, in partial remission; I10 Essential (primary) hypertension; E66.01 Morbid (severe) obesity due to excess calories; Z87.891 Personal history of nicotine dependence; Z91.040 Latex allergy status; Z90.49 Acquired absence of other specified parts of digestive tract; Z90.710 Acquired absence of both cervix and uterus; Z83.3 Family history of diabetes mellitus; Z82.49 Family history of ischemic heart disease and other diseases of the circulatory system; Z83.6 Family history of other diseases of the respiratory system